=== PATIENT | female | born 1975 | race Caucasian/White ===

== ENCOUNTER → 2018-02-23 | Outpatient (CLI) | payer OTHER ==
--- NOTE | 2018-02-23 09:31 | MM ---
Reason for exam: additional evaluation requested from prior study. Last mammogram was performed 3 years ago. History: Patient is postmenopausal, has history of breast cancer at age 39, and had first child at age 34. Family history of breast cancer in mother at age 65 and breast cancer in paternal grandmother. Malignant US biopsy breast VAD LT of the left breast, February 13, 2015. Malignant US biopsy breast add'l VAD LT of the left breast, February 13, 2015. Lumpectomy of the left breast, 2014. Chemotherapy, 2014. Radiation therapy of the left breast, 2014. Taking antineoplastic for 3 years. Physical Findings: Nurse did not find any significant physical abnormalities on exam. MG 3D Diag Mammo W/Cad JING Bilateral CC and MLO view(s) were taken. Prior study comparison: February 13, 2015, left breast MG diagnostic mammo LT wo CAD. February 03, 2015, left breast MG 3d work up w/cad LT. Finding: Architectural distortion with clips and dystrophic calcifications in the central position of the left breast consistent with known lumpectomy and treatment changes. There is no discrete abnormality. These results were verbally communicated with the patient and result sheet given to the patient on 02/23/18. ASSESSMENT: Benign, BI-RAD 2 RECOMMENDATION: Follow-up diagnostic mammogram of both breasts in 1 year.
== END | disposition home or self-care (01) ==
LOC: RADMAMWWP 07:21
PROVIDERS: ATTEND Radiology Radiation Oncology
DX: Z08 Encounter for follow-up examination after completed treatment for malignant neoplasm (principal); Z85.3 Personal history of malignant neoplasm of breast
CPT/HCPCS: 77062; 77066

== ENCOUNTER → 2018-04-06 | Outpatient (CLI) | payer OTHER ==
--- NOTE | 2018-04-07 11:11 | BD ---
EXAMINATION TYPE: Axial Bone Density DATE OF EXAM: 04/06/2018 CLINICAL HISTORY: Post menopausal female with HRT. Breast cancer. Height: 61.5 Weight: 137 FRAX RISK QUESTIONS: Alcohol (3 or more units per day): no Family History (Parent hip fracture): no Glucocorticoids (More than 3mos): no (Ex: prednisone, prednisolone, methylprednisolone, dexamethasone, and hydrocortisone). History of Fracture in Adulthood: no Secondary Osteoporosis: 1. Type 1 Diabetes: no 2. Hyperthyroidism: no 3. Menopause before 45: yes 4. Malnutrition: no 5. Chronic liver disease: no Rheumatoid Arthritis: no Current Tobacco Use: no RISK FACTORS HISTORY OF: Family History of Osteoporosis: yes, mother Active: yes Diet low in dairy products/other sources of calcium: no Postmenopausal woman: yes Take estrogen and/or progesterone medications: no Lost more than 2 inches in height since high school: no Frequent falls: no Poor Health: no Hyperparathyroidism: no Adrenal Insufficiency: no MEDICATIONS: Prednisone or other steroids: no Thyroid Medications: no Osteoporosis Medications: yes Which medication: Alendronate sodium How Long: over a year Additional Medications: Antineoplastic for several years , calcium Additional History: Breast CA age 39;chemo/radiation EXAM MEASUREMENTS: Bone mineral densitometry was performed using the [employer] System. Bone mineral density as measured about the Lumbar spine is: ----- L1-L4(G/cm2): 1.148 T Score Values are as follows: ----- L2: -0.3 ----- L3: 0.0 ----- L4: -0.7 ----- L1-L4: -0.3 Bone mineral density not previously done at this facility; done previously elsewhere Bone mineral density about the R hip (g/cm2): 0.740 Bone mineral density about the L hip (g/cm2): 0.745 T Score values are as follows: -----R Neck: -2.1 -----L Neck: -2.1 -----R Total: -1.8 -----L Total: -1.9 Bone mineral density not previously done at this facility, done elsewhere IMPRESSION: Osteopenia (T Score between -2.5 and -1). There is slightly increased risk of fracture and the patient may be considered for treatment. Re-Screen 2-5 years. NOTE: T-SCORE=SD OF THE YOUNG ADULT MEAN.
== END | disposition home or self-care (01) ==
LOC: RADBDWWP 07:50
PROVIDERS: ATTEND Internal Medicine Hematology & Oncology
DX: C50.512 Malignant neoplasm of lower-outer quadrant of left female breast (principal); M85.80 Other specified disorders of bone density and structure, unspecified site
CPT/HCPCS: 77080

== ENCOUNTER → 2019-02-26 | Outpatient (CLI) | payer OTHER ==
--- NOTE | 2019-02-26 09:43 | MM ---
Reason for exam: additional evaluation requested from prior study. Last mammogram was performed 1 year ago. History: Patient is postmenopausal, has history of breast cancer at age 39, and had first child at age 34. Family history of breast cancer in mother at age 65 and breast cancer in paternal grandmother. Malignant US biopsy breast VAD LT of the left breast, February 13, 2015. Malignant US biopsy breast add'l VAD LT of the left breast, February 13, 2015. Lumpectomy of the left breast, 2014. Chemotherapy, 2014. Radiation therapy of the left breast, 2014. Taking antineoplastic for 3 years. Took other hormone beginning at age 39. Physical Findings: Nurse did not find any significant physical abnormalities on exam. MG Diagnostic Mammo w CAD JING Bilateral CC, MLO, and XCCL view(s) were taken. ML, XCCM with magnification, XCCL with magnification, and ML with magnification view(s) were taken of the left breast. Prior study comparison: February 23, 2018, bilateral MG 3d diag mammo w/cad JING. February 13, 2015, left breast MG diagnostic mammo LT wo CAD. The breast tissue is heterogeneously dense. This may lower the sensitivity of mammography. Multiple benign left calcifications. There additionally are new calcifications spanning 6mm in the superior left breast over the pectoralis at posterior depth. On magnifications views theses are rounded and somewhat similar to the other left calcifications. 6 month follow up left breast recommended, discussed with patient, if interval growth in 6 months biopsy would be recommended. These results were verbally communicated with the patient and result sheet given to the patient on 02/26/19. ASSESSMENT: Probably benign, BI-RAD 3 RECOMMENDATION: Follow-up diagnostic mammogram of the left breast in 6 months.
== END | disposition home or self-care (01) ==
LOC: RADMAMWWP 07:24
PROVIDERS: ATTEND Internal Medicine Hematology & Oncology
DX: Z08 Encounter for follow-up examination after completed treatment for malignant neoplasm (principal); Z85.3 Personal history of malignant neoplasm of breast
CPT/HCPCS: 77066

== ENCOUNTER → 2020-06-18 | Outpatient (CLI) | payer OTHER ==
--- NOTE | 2020-06-19 13:37 | MM ---
Reason for exam: screening (asymptomatic). Last mammogram was performed 7 months ago. History: Patient is postmenopausal, has history of breast cancer at age 39, and had first child at age 34. Family history of breast cancer in mother at age 65 and breast cancer in paternal grandmother. Malignant US biopsy breast VAD LT of the left breast, February 13, 2015. Malignant US biopsy breast add'l VAD LT of the left breast, February 13, 2015. Lumpectomy of the left breast, 2014. Chemotherapy, 2014. Radiation therapy of the left breast, 2014. Taking antineoplastic for 3 years. Took other hormone for 5 years beginning at age 39. Physical Findings: A clinical breast exam by your physician is recommended on an annual basis and results should be correlated with mammographic findings. MG 3D Screening Mammo W/Cad Bilateral CC and MLO view(s) were taken. Prior study comparison: November 14, 2019, left breast MG 3d diag mammo w/cad LT. February 26, 2019, bilateral MG diagnostic mammo w CAD JING. The breast tissue is heterogeneously dense. This may lower the sensitivity of mammography. Finding #1: There is stable clips and architectural distortion in the left breast consistent with known excision and treatment changes. Finding #2: There are typically benign dystrophic, round, regional calcifications in the left breast. There is no discrete abnormality. ASSESSMENT: Benign, BI-RAD 2 RECOMMENDATION: Routine screening mammogram of both breasts.
== END ==
LOC: RADMAMWWP 10:53
PROVIDERS: ATTEND Internal Medicine Hematology & Oncology
DX: Z12.31 Encounter for screening mammogram for malignant neoplasm of breast (principal); Z80.3 Family history of malignant neoplasm of breast; Z85.3 Personal history of malignant neoplasm of breast; Z78.0 Asymptomatic menopausal state
CPT/HCPCS: 77063; 77067

== ENCOUNTER → 2020-08-01 | Outpatient (CLI) | payer OTHER ==
--- NOTE | 2020-08-03 18:57 | US ---
EXAMINATION TYPE: US pelvis complete transvag DATE OF EXAM: 08/01/2020 COMPARISON: NONE CLINICAL HISTORY: 45-year-old female postmenopausal bleeding N95.0. Right vaginal bleeding for 4 days in April 2020. TECHNIQUE: Transvaginal (TV) and Transabdominal (TA) . Transabdominal sonographic images of the pel vis were acquired. Transvaginal sonographic images were medically necessary to better assess the fol lowing anatomy: ovaries Date of LMP: 4-5 years ago EXAM MEASUREMENTS: Uterus: 9.3 x 3.7 x 4.3 cm Endometrial Stripe: 4.8 mm Right Ovary: 2.5 x 1.2 x 2.3 cm Left Ovary: unable to visualize 1. Uterus: Anteverted . Some prominent myometrial vessels are present anteriorly. 2. Endometrium: Upper limits of normal. 3. Right Ovary: appears wnl 4. Left Ovary: Obscured by overlying bowel gas 5. Bilateral Adnexa: wnl 6. Posterior cul-de-sac: wnl IMPRESSION: 1. The endometrial stripe (5 mm) is upper limits of normal for a postmenopausal female with bleeding. 2-3 month follow-up ultrasound recommended to reassess. If any progressive thickening occurs, furthe r evaluation will be warranted. 2. Unable to visualize the left ovary.
== END | disposition home or self-care (01) ==
LOC: RADUSWWP 13:03
PROVIDERS: ATTEND Obstetrics & Gynecology
DX: N95.0 Postmenopausal bleeding (principal)
CPT/HCPCS: 76830; 76856

== ENCOUNTER → 2023-01-04 | Outpatient (CLI) | payer OTHER ==
--- NOTE | 2023-01-04 22:57 | US ---
EXAMINATION TYPE: US pelvis complete transvag DATE OF EXAM: 01/04/2023 COMPARISON: NONE CLINICAL INDICATION: Female, 47 years old with history of N93.9 ABNORMAL UTERINE AND VAGINAL BLEEDING , UNSPE; Vaginal bleeding 2 weeks ago, lasting 1 week. 2 prior c-sections. TECHNIQUE: . Transvaginal sonographic images of the pelvis were acquired. Transabdominal sonographi c images were medically necessary to better assess the following anatomy: uterus and ovaries Date of LMP: 7 years ago EXAM MEASUREMENTS: Uterus: 8.7 x 3.7 x 5.2 cm Endometrial Stripe: 0.3 cm Right Ovary: 2.3 x 1.8 x 1.4 cm Left Ovary: 1.8 x1.6 x 1.0 cm 1. Uterus: Anteverted 2. Endometrium: appears wnl 3. Right Ovary: wnl 4. Left Ovary: wnl 5. Bilateral Adnexa: wnl 6. Posterior cul-de-sac: wnl IMPRESSION: 1. Unremarkable pelvic ultrasound
== END | disposition home or self-care (01) ==
LOC: RADUSWWP 13:24
PROVIDERS: ATTEND Family Medicine
DX: N93.9 Abnormal uterine and vaginal bleeding, unspecified (principal)
CPT/HCPCS: 76830; 76856

== ENCOUNTER → 2023-08-03 | Outpatient (CLI) | payer OTHER ==
--- NOTE | 2023-08-04 21:05 | MM ---
Reason for Exam: Screening (asymptomatic). Last mammogram was performed 3 year(s) and 1 month(s) ago. Patient History: Menarche at age 11. First Full-Term at age 34. Late child-bearing (after 30). Postmenopausal. Patient has history of breast feeding. Breast cancer, left, age 39. Previous chest radiation therapy at age 39. Previous chemotherapy at age 39. 2014, Lumpectomy on the Left side. 02/13/2015, Malignant Core Biopsy on the left side. 02/13/2015, Malignant Core Biopsy on the left side. 2014, Chemotherapy. 2014, Radiation Therapy on the left side. Paternal grandmother had breast cancer. Mother had breast cancer, age 65. Prior Study Comparison: 02/26/2019 Bilateral Diagnostic Mammogram, [facility]. 11/14/2019 Left Diagnostic Mammogram, [facility]. 06/18/2020 Bilateral Screening Mammogram, [facility]. Tissue Density: The breasts are heterogeneously dense, which may obscure small masses. Findings: Analyzed By CAD. The pattern is symmetrical. Multiple surgical clips calcifications are within the left breast. There is a small focal distortion within the mid lateral right craniocaudal view not present on prior examinations. Additional workup is recommended. No suspicious groups of microcalcifications, spiculated or lobular masses, architectural distortion or other secondary signs of malignancy are mammographically apparent. Overall Assessment: Incomplete: need additional imaging evaluation, BI-RAD 0 Management: Diagnostic Mammogram of the right breast. A negative mammogram report should not preclude additional follow up of suspicious palpable abnormalities. Patient should continue monthly self breast exam. A clinical breast exam by your physician is recommended on an annual basis and results should be correlated with mammographic findings. Note on Karly scores and lifetime risk: 1. A Karly score greater than 3% is considered moderate risk. If this is the case, consider specialist referral to assess eligibility for a risk reducing agent. 2. If overall lifetime risk for the development of breast cancer is 20% or higher, the patient may qualify for future screening with alternating mammogram and breast MRI. Electronically signed and approved by: Malik Lew D.O. Radiologis
== END | disposition home or self-care (01) ==
LOC: RADMAMWWP 15:42
PROVIDERS: ATTEND Family Medicine
DX: Z12.31 Encounter for screening mammogram for malignant neoplasm of breast (principal); Z78.0 Asymptomatic menopausal state; Z80.3 Family history of malignant neoplasm of breast
CPT/HCPCS: 77063; 77067

== ENCOUNTER → 2023-08-08 | Outpatient (CLI) | payer OTHER ==
--- NOTE | 2023-08-08 08:10 | MM ---
Reason for Exam: Additional evaluation requested from abnormal screening. Last screening mammogram was performed less than 1 month ago. Patient History: Menarche at age 11. First Full-Term at age 34. Late child-bearing (after 30). Postmenopausal. Patient has history of breast feeding. Breast cancer, left, age 39. Previous chest radiation therapy at age 39. Previous chemotherapy at age 39. 2014, Lumpectomy on the Left side. 02/13/2015, Malignant Core Biopsy on the left side. 02/13/2015, Malignant Core Biopsy on the left side. 2014, Chemotherapy. 2014, Radiation Therapy on the left side. Paternal grandmother had breast cancer. Mother had breast cancer, age 65. Prior Study Comparison: 01/27/2015 Bilateral Screening Mammogram, [facility]. 02/03/2015 Left Diagnostic Mammogram, [facility]. 02/03/2015 Left Diagnostic Ultrasound, [facility]. 02/13/2015 Left Diagnostic Mammogram, [facility]. 02/21/2015 Bilateral Diagnostic Breast MRI, [facility]. 02/23/2018 Bilateral Diagnostic Mammogram, [facility]. 02/26/2019 Bilateral Diagnostic Mammogram, [facility]. 11/14/2019 Left Diagnostic Mammogram, [facility]. 06/18/2020 Bilateral Screening Mammogram, [facility]. 08/03/2023 Bilateral MG 3D screening mammo w/cad, [facility]. Tissue Density: Right: The breasts are heterogeneously dense, which may obscure small masses. Findings: Analyzed By CAD. Small area of distortion right breast disperses appropriately. Precautionary six-month follow-up is recommended of the right breast. Overall Assessment: Probably benign, BI-RAD 3 Management: Diagnostic Mammogram of the right breast in 6 months. . Results were given to the patient verbally at the time of exam. Patient should continue monthly self-breast exams. A clinical breast exam by your physician is recommended on an annual basis. This exam should not preclude additional follow-up of suspicious palpable abnormalities. Note on Karly scores and lifetime risk: 1. A Karly score greater than 3% is considered moderate risk. If this is the case, consider specialist referral to assess eligibility for a risk reducing agent. 2. If overall lifetime risk for the development of breast cancer is 20% or higher, the patient may qualify for future screening with alternating mammogram and breast MRI. Electronically signed and approved by: Moses Gil M.D. Radiologis
== END | disposition home or self-care (01) ==
LOC: RADMAMWWP 07:49
PROVIDERS: ATTEND Family Medicine
DX: R92.331 Mammographic heterogeneous density, right breast (principal); Z85.3 Personal history of malignant neoplasm of breast; Z80.3 Family history of malignant neoplasm of breast; Z78.0 Asymptomatic menopausal state
CPT/HCPCS: 77061; 77065

== ENCOUNTER → 2024-09-26 | Outpatient (CLI) | payer OTHER ==
--- NOTE | 2024-09-26 13:18 | MM ---
Reason for Exam: Screening (asymptomatic). Last mammogram was performed 1 year(s) and 2 month(s) ago. Patient History: Menarche at age 11. First Full-Term at age 34. Late child-bearing (after 30). Postmenopausal. Patient has history of breast feeding. Breast cancer, left, age 39. Previous chest radiation therapy at age 39. Previous chemotherapy at age 39. 2014, Lumpectomy on the Left side. 02/13/2015, Malignant Core Biopsy on the left side. 02/13/2015, Malignant Core Biopsy on the left side. 2014, Chemotherapy. 2014, Radiation Therapy on the left side. Paternal grandmother had breast cancer. Mother had breast cancer, age 65. Prior Study Comparison: 06/18/2020 Bilateral Screening Mammogram, [facility]. 08/03/2023 Bilateral MG 3D screening mammo w/cad, [facility]. 08/08/2023 Right MG 3D work up w/cad RT, [facility]. Tissue Density: There are scattered areas of fibroglandular density. Findings: Analyzed By CAD. There are regional surgical clips and large round calcifications in the left breast redemonstrated. There is no suspicious group of microcalcifications or new suspicious mass in either breast. Overall Assessment: Benign, BI-RAD 2 Management: Screening Mammogram of both breasts in 1 year. . Patient should continue monthly self-breast exams. A clinical breast exam by your physician is recommended on an annual basis. This exam should not preclude additional follow-up of suspicious palpable abnormalities. Note on Karly scores and lifetime risk: 1. A Karly score greater than 3% is considered moderate risk. If this is the case, consider specialist referral to assess eligibility for a risk reducing agent. 2. If overall lifetime risk for the development of breast cancer is 20% or higher, the patient may qualify for future screening with alternating mammogram and breast MRI. [facility], , 09/26/2024 1:15 PM. Electronically signed and approved by: Venkata Walker M.D.
== END | disposition home or self-care (01) ==
LOC: RADMAMWWP 11:25
PROVIDERS: ATTEND Family Medicine
DX: Z12.31 Encounter for screening mammogram for malignant neoplasm of breast (principal); R92.323 Mammographic fibroglandular density, bilateral breasts; R92.1 Mammographic calcification found on diagnostic imaging of breast; Z78.0 Asymptomatic menopausal state; Z80.3 Family history of malignant neoplasm of breast; Z85.3 Personal history of malignant neoplasm of breast
CPT/HCPCS: 77063; 77067